=== PATIENT | male | born 1970 | race American Indian/Alaskan Native ===

== ENCOUNTER 2023-11-27 12:19 | Emergency (ER) | payer MEDICARE ==
[~2023-11-27] VITALS: Ht 172.7 cm; Wt 81.7 kg
[~2023-11-27 12:19] MED LIST: ALPR.5 PO; AMOCLA875 PO; AMOX500 PO; AMPDEX10 PO; ASPI325; ASPI81EC; ATEN25; ATEN50; ATEN50 PO; ATOM40 PO; Bactrim Ds Tab1 EACH PO; Benadryl 50 mg50 MG PO; CIPR500 PO; CLOBET30L TOP; CRUTCH4 USE; CYCL10 PO; DAYQUIL; DICL75ER PO; DIPATR PO; DIPH25 PO; FAMO20 PO; FLUO20 PO; HYDACE25S PR; HYDACE5 PO; HYDMOR2 PO; HYDR120LO TOP; IBUP600 PO; IBUP800 PO; LISHYD1012 PO; LISHYD2012 PO; LISI20 PO; LISI5 PO; LORA2 PO; METR500 PO; NAPR500 PO; NAPR550 PO; NYQUIL; OXYACE5T PO; PARO10 PO; PARO20 PO; PROM25 PO; Pepcid20 MG PO; RANI150 PO; RXHYDMOR2 PO; RXOXYACE PO; SULTRIDS PO; TRAM50 PO; Vibramycin100 MG PO; [UNRECOGNIZED DRUG - OTHER]
[2023-11-27] MEDS ORDERED: ASPI81CH PO (12:38)
[2023-11-27] MEDS ORDERED: NITR.4SL SL (12:39)
[2023-11-27 13:15] LABS: BASOPHILS ABSOLUTE AUTO 0.04 K/mm3 (0.00-0.23); BASOPHILS PERCENT AUTO 1 % (0-2); EOSINOPHILS ABSOLUTE AUTO 0.35 K/mm3 (0.00-0.68); EOSINOPHILS PERCENT AUTO 5 % (0-6); Hematocrit 47.9 % (37.0-53.0); Hemoglobin 16.1 g/dL (13.5-17.5); IMMATURE GRAN ABSOLUTE AUTO 0.01 K/mm3 (0.00-0.10); IMMATURE GRAN PERCENT AUTO 0 % (0-1); LYMPHOCYTES ABSOLUTE AUTO 1.78 K/mm3 (0.84-5.20); LYMPHOCYTES PERCENT AUTO 27 % (21-46); MONOCYTES ABSOLUTE AUTO 0.66 K/mm3 (0.16-1.47); MONOCYTES PERCENT AUTO 10 % (4-13); Mean Corpuscular HGB 29.2 pg (26.0-34.0); Mean Corpuscular HGB Conc 33.6 g/dL (31.5-36.5); Mean Corpuscular Volume 87 fL (80-100); Mean Platelet Volume 9.6 fL (9.1-12.4); NEUTROPHILS ABSOLUTE AUTO 3.72 K/mm3 (1.96-9.15); NEUTROPHILS PERCENT AUTO 57 % (41-73); Platelet Count 265 K/mm3 (150-400); RDW Coefficient Variation 11.9 % (11.7-14.2); Red Blood Cell Count 5.52 M/mm3 (4.30-5.90); White Blood Cell Count 6.56 K/mm3 (4.00-11.30)
[2023-11-27 13:46] LABS: Bilirubin, Total 0.3 mg/dL (0.1-1.0); Bun/Creatinine Ratio 12.5 (12.0-20.0); Calcium, Blood 9.1 mg/dL (8.5-10.1); Creatinine, Blood 0.8 mg/dL (0.60-1.20); Potassium, Blood 4.2 mmol/L (3.5-5.5)
[2023-11-27 14:08] LABS: SARS-Cov-2 (COVID-19) PCR, MMC NEGATIVE (NEGATIVE)
[2023-11-27 14:12] LABS: Influenza A Negative (NEGATIVE); Influenza B Negative (NEGATIVE)
[2023-11-27 15:30] VITALS: BP 136/101
== END 2023-11-27 15:43 | disposition home or self-care (01) ==
LOC: ER 12:19
PROVIDERS: Physician Assistant
DX: R07.89 Other chest pain (principal); Z87.891 Personal history of nicotine dependence; I10 Essential (primary) hypertension; Z86.74 Personal history of sudden cardiac arrest; Z86.73 Personal history of transient ischemic attack (TIA), and cerebral infarction without residual deficits; F90.0 Attention-deficit hyperactivity disorder, predominantly inattentive type; Z88.6 Allergy status to analgesic agent
CPT/HCPCS: 71046; 80053; 83880; 84484; 85025; 87804; 87807; 93005; 93010; 99285-25; U0002